=== PATIENT | male | born 1965 | race Caucasian/White ===

== ENCOUNTER 2017-02-06 02:56 | Emergency (ER) | payer MEDICAID ==
[~2017-02-06] VITALS: Ht 167.6 cm; Wt 88.0 kg
[2017-02-06 03:02] VITALS: Ht 167.6 cm; Wt 88.0 kg
[2017-02-06] MEDS ORDERED: ONDANSETRON (ODT) 4 MG TAB ODT STA (03:57)
--- NOTE | 2017-02-06 03:59 | ERD ---
ER Documentation Chief Complaint Date/Time DATE: 02/06/17 TIME: 03:58 Chief Complaint hot flashes, diarrhea, & throat dryness after taking extra OTC SED(rhino 8) HPI This 51-year-old male patient reports drinking took extra "sex" pill OTC Pankaj and had hot flash and diarrhea, Homeless Patient reports that he fell asleep in exam room that he is feeling better now, feels dehydrated and nauseated. Patient reports that after taking pills he had diarrhea stool, patient reports no abdominal pain, chest pain, back pain, shortness of breath or dizziness ROS All systems reviewed and are negative except as per history of present illness. PMhx/Soc Medical and Surgical Hx: pt denies Medical Hx, pt denies Surgical Hx Hx Alcohol Use: Yes Hx Tobacco Use: No Smoking Status: Never smoker Physical Exam Vitals Vital Signs Date Time Temp Pulse Resp B/P Pulse Ox O2 Delivery O2 Flow Rate FiO2 02/06/17 03:02 98.1 109 20 137/80 96 Vitals stable, triage notes reviewed Physical Exam Const: No acute distress, well-hydrated Head: Atraumatic Eyes: Normal Conjunctiva, PERRLA EOMI ENT: Normal External Ears, Nose and Mouth. Neck: Full range of motion..~ No meningismus. Resp: Cardio: Abd: Soft, non tender, non distended. Normal bowel sounds Skin: No petechiae or rashes Back: Ext: Neur: Awake and alert Psych: Normal Mood and Affect Results 24 hrs Current Medications Medications (Trade) Dose Ordered Sig/Jony Route PRN Reason Start Time Stop Time Status Last Admin Dose Admin Ondansetron HCl (Zofran Odt) 4 mg ONCE STAT ODT 02/06/17 03:57 02/06/17 03:58 DC 02/06/17 04:04 Procedures/MDM This 51-year-old male patient presents to emergency department with reports while drinking alcohol today he accidentally took 2 [id number] herbal penile enhancement pills, patient reports that he felt hot and developed diarrhea after taking medication. Has reportedly fallen asleep in the exam room and reports feeling better now. Patient reports that he is homeless, nauseated, and feels dehydrated. Patient receives Zofran, p.o. challenge well and emergency department tolerated well. Able to drink water without vomiting, discharged from with no additional medication. I feel the patient is stable for discharge at this time. I have discussed results, examination findings, the treatment plan with the patient and family present prior to discharge. Indications for emergent reevaluation, side effects of medication were also discussed. All questions were answered. Patient verbalizes understanding and agrees with plan of care. Departure Diagnosis: Primary Impression: Accidental overdose Encounter type: initial encounter Qualified Code: T50.901A - Accidental overdose, initial encounter Patient Instructions: Overdose, Accidental (Adult) Additional Instructions: Thank you for for coming to [facility] for your care today. Please ask your nurse or provider if you have questions about your care today and do not leave until all your questions have been answered. Please use any medications given as directed and follow-up with your doctor (or the doctor you were referred to) in the next 2-3 days. If you do not have a primary care doctor you may follow up at the [facility] [place] (listed below). You may also use motrin and tylenol as needed for fever and/or pain unless instructed otherwise by your provider or nurse. Indications for more urgent follow-up have been discussed, but you may return to the Emergency Department at ANY time for any worrisome or worsening symptoms. If you have abdominal pain, please know that no test or exam you received is perfect and you should follow up within 8 hours for continued pain. If you had any imaging studies today, such as an X-Ray or CT Scan, these studies will be reviewed later by a radiologist. You will be called if there are important findings that were not identified today, so make sure the contact information you provided at registration is correct. If you received any narcotic pain control medicine today, such as Vicodin, Morphine or Dilaudid, your coordination and judgment may be affected for a number of hours. Please do not drive or operate heavy machinery, and you may want someone to assist you at home. If you were given a prescription for narcotic medication, be aware that it is very addictive- use sparingly and only if necessary. KARLENE WEINBERG Feb 06, 2017 03:59
[2017-02-06 04:49] VITALS: BP 120/77; PULSE 77; RESP 20; TEMP 98.1
== END 2017-02-06 04:50 | disposition home or self-care (01) ==
LOC: FTE 02:56
DX: T50.991A Poisoning by other drugs, medicaments and biological substances, accidental (unintentional), initial encounter (principal)
CPT/HCPCS: Z7502; Z7610; 99283